=== PATIENT | male | born 2000 | race Caucasian/White ===

== ENCOUNTER 2024-02-24 22:37 | Emergency (ER) | payer OTHER ==
[~2024-02-24] VITALS: Ht 170.2 cm; Wt 96.4 kg
[2024-02-25 07:36] VITALS: BP 126/68; TEMP 98.5; O2SAT 97
== END 2024-02-25 07:40 | disposition home or self-care (01) ==
LOC: M ED 22:37
DX: S91.114A Laceration without foreign body of right lesser toe(s) without damage to nail, initial encounter (principal); W22.8XXA Striking against or struck by other objects, initial encounter; Y92.009 Unspecified place in unspecified non-institutional (private) residence as the place of occurrence of the external cause; Y93.89 Activity, other specified; Y99.9 Unspecified external cause status

== ENCOUNTER 2025-05-24 11:48 | Emergency (ER) | payer OTHER ==
[~2025-05-24] VITALS: Ht 170.2 cm; Wt 95.0 kg
[2025-05-24 12:51] LABS: BASO # 0.1 10^3/uL (0.0-0.2); BASO % 0.7 % (0.0-1.0); EOS # 0.1 10^3/uL (0.0-0.5); EOS % 0.9 % (0.0-3.0); LYMPH # 2.9 10^3/uL (1.5-5.0); LYMPH % 33.0 % (24.0-44.0); MONO # 0.6 10^3/uL (0.0-0.8); MONO % 6.4 % (2.0-8.0); NEUTROPHILS # 5.2 10^3/uL (1.5-8.5); NEUTROPHILS % 58.7 % (36.0-66.0); PLATELET COUNT, AUTOMATED 299 10^3/uL (150-450)
[2025-05-24 13:13] LABS: CALCIUM LEVEL 9.6 MG/DL (8.5-10.1); CARBON DIOXIDE LEVEL 29 MMOL/L (20-31); CHLORIDE LEVEL 101 MMOL/L (98-107); CPK CREATINE PHOSPHOKINASE 140 U/L (46-171); CREATININE FOR GFR 0.98 MG/DL (0.70-1.30); GLOMERULAR FILTRATION RATE > 90.0 (>60); POTASSIUM SERUM 4.2 MMOL/L (3.5-5.1); SODIUM LEVEL 140 MMOL/L (136-145)
[2025-05-24] MEDS: NS (Normal Saline) 0.9% 1,000 ML IV ONE (14:23)
[2025-05-24 14:26] LABS: CK-MB VALUE MASS < 1.0 NG/ML (<3.6)
[2025-05-24 16:00] VITALS: BP 114/64; TEMP 97.9; O2SAT 99
== END 2025-05-24 16:10 | disposition home or self-care (01) ==
LOC: M ED 11:48
DX: E86.0 Dehydration (principal); S86.819A Strain of other muscle(s) and tendon(s) at lower leg level, unspecified leg, initial encounter; Y92.9 Unspecified place or not applicable; Y93.02 Activity, running; Y99.9 Unspecified external cause status; F17.290 Nicotine dependence, other tobacco product, uncomplicated; F10.10 Alcohol abuse, uncomplicated